=== PATIENT | female | born 1955 | race Caucasian/White ===

== ENCOUNTER 2017-07-10 21:05 | Emergency (ER) | payer BC ==
[~2017-07-10] VITALS: Ht 152.4 cm; Wt 60.8 kg
[2017-07-10 21:05] VITALS: BP_SYST 95
[2017-07-11 02:20] VITALS: BP_SYST 97
== END 2017-07-11 02:20 | disposition home or self-care (01) ==
LOC: SED 21:05
DX: K59.00 Constipation, unspecified (principal); F32.9 Major depressive disorder, single episode, unspecified; Z90.49 Acquired absence of other specified parts of digestive tract; Z88.8 Allergy status to other drugs, medicaments and biological substances
CPT/HCPCS: 74021; 99284